=== PATIENT | male | born 2000 | race Caucasian/White ===

== ENCOUNTER 2025-01-23 11:43 | Emergency (ER) | payer MEDICAID ==
[~2025-01-23] VITALS: Ht 172.7 cm; Wt 64.9 kg
[2025-01-23] MEDS ORDERED: ondansetron HCL 4 MG/2 ML VIAL IV ONE (12:00)
[2025-01-23] MEDS ORDERED: SODIUM CHLORIDE 0.9% 1,000 ML IV PRN (12:00)
[2025-01-23 12:10] LABS: BASOPHILS 0.3 % (0-2); EOSINOPHILS 0.6 % (0-6); HEMATOCRIT 47.4 % (35.0-50.0); LYMPHOCYTES 4.6 % (24-44); MCH 29.7 (27-36); MCHC 33.7 g/dl (30-36); MCV 88.2 fl (81-99); MONOCYTES 6.5 % (0-12); PLATELET COUNT 243 K/uL (140-440); RBC 5.37 M/ul (4.3-5.7)
[2025-01-23 12:18] LABS: BILIRUBIN, URINE NEGATIVE (negative); BLOOD/HGB, URINE NEGATIVE (Negative); KETONE, URINE NEGATIVE (Negative); LEUK ESTERASE, URINE NEGATIVE (negative); NITRITE, URINE NEGATIVE (negative); PH, URINE 6.5 (5-7)
[2025-01-23 12:29] LABS: ALBUMIN 4.2 g/dL (3.4-5.0); ALBUMIN/GLOBULIN RATIO 1.08 (1.1-2.4); BILIRUBIN, TOTAL 0.3 mg/dL (0.2-1.0); CALCIUM 9.2 mg/dL (8.5-10.1); CREATININE, SERUM 0.75 mg/dL (0.70-1.30); MAGNESIUM 1.7 mg/dL (1.8-2.4); PROTEIN, TOTAL 8.1 g/dL (6.4-8.2)
[2025-01-23] MEDS ORDERED: ONDANSETRON ODT8 MG PO (15:29)
[2025-01-23] MEDS ORDERED: LOPERAMIDE2 M1 PO (15:29)
[2025-01-23 15:42] VITALS: BP 125/78
== END 2025-01-23 15:44 | disposition home or self-care (01) ==
LOC: ED 11:43
PROVIDERS: Emergency Medicine
DX: R11.2 Nausea with vomiting, unspecified (principal); R19.7 Diarrhea, unspecified; R10.12 Left upper quadrant pain; J45.909 Unspecified asthma, uncomplicated
CPT/HCPCS: 36415; 80053; 81003; 83735; 85025; 96361; 96374; 99284-25; J2405; J7030

== ENCOUNTER 2025-05-11 16:40 | Emergency (ER) | payer MEDICAID ==
[~2025-05-11] VITALS: Ht 172.7 cm; Wt 62.9 kg
[~2025-05-11 16:40] MED LIST: LOPERAMIDE2 M1 PO; ONDANSETRON ODT8 MG PO
[2025-05-11] MEDS ORDERED: ondansetron HCL 4 MG/2 ML VIAL IV ONE (17:00)
[2025-05-11 17:07] LABS: BASOPHILS 0.1 % (0.2-1.2); EOSINOPHILS 0 % (0.8-7.0); HEMATOCRIT 44.3 % (40.1-51.0); HEMOGLOBIN 15.8 g/dL (13.7-17.5); LYMPHOCYTES 8.4 % (21.8-53.1); MCH 29.5 PG (25.7-32.2); MCHC 35.7 g/dL (32.3-36.5); MCV 82.8 fL (79.0-92.2); MONOCYTES 5.1 % (5.3-12.2); PLATELET COUNT 299 K/uL (163-337); RBC 5.35 M/uL (4.63-6.08)
[2025-05-11 17:21] LABS: ALBUMIN 4.4 g/dL (3.4-5.0); ALBUMIN/GLOBULIN RATIO 1.07 (1.1-2.4); ANION GAP 19.6 (7-21); BILIRUBIN, TOTAL 0.7 mg/dL (0.2-1.0); BUN/CREATININE RATIO 18.55 (6.0-28.6); CALCIUM 9.9 mg/dL (8.5-10.1); CREATININE, SERUM 0.97 mg/dL (0.70-1.30); MAGNESIUM 1.6 mg/dL (1.8-2.4); POTASSIUM 3.6 mmol/L (3.5-5.1); PROTEIN, TOTAL 8.5 g/dL (6.4-8.2)
[2025-05-11] MEDS ORDERED: ONDANSETRON 4 MG HOME.PACK SL ONE (17:30)
[2025-05-11 17:42] VITALS: BP 138/72
== END 2025-05-11 17:42 | disposition home or self-care (01) ==
LOC: ED 16:40
PROVIDERS: Emergency Medicine
DX: A05.9 Bacterial foodborne intoxication, unspecified (principal); J45.909 Unspecified asthma, uncomplicated
CPT/HCPCS: 36415; 80053; 83735; 85025; 96374; 99284-25; A9270; J2405

== ENCOUNTER 2025-09-04 16:31 | Emergency (ER) | payer OTHER, MEDICAID ==
[~2025-09-04] VITALS: Ht 172.7 cm; Wt 65.0 kg
[2025-09-04] MEDS ORDERED: AMOXICILLIN/CLAVULANATE K 875 MG TAB PO ONE (17:15)
[2025-09-04] MEDS ORDERED: AMOX TR-K CLV1 EAC1 PO (17:24)
[2025-09-04 17:51] VITALS: BP 123/82
== END 2025-09-04 17:53 | disposition home or self-care (01) ==
LOC: ED 16:31
DX: S41.052A Open bite of left shoulder, initial encounter (principal); J45.909 Unspecified asthma, uncomplicated; W54.0XXA Bitten by dog, initial encounter
CPT/HCPCS: 99283